=== PATIENT | female | born 1990 | race Caucasian/White ===

== ENCOUNTER → 2019-04-17 | Outpatient (CLI) | payer OTHER ==
[~2019-04-17] VITALS: Ht 163.8 cm; Wt 100.5 kg
[~2019-04-17] MED LIST: MULTIVITAMIN FO1 CAP PO; TRI-SPRINTEC 281 TAB PO; ZOVIRAX400 MG
[2019-04-17 14:00] VITALS: BP 108/80; PULSE 60
== END ==
LOC: LIGHT 13:36
DX: Z68.37 Body mass index [BMI] 37.0-37.9, adult (principal); Z98.84 Bariatric surgery status; K21.9 Gastro-esophageal reflux disease without esophagitis
CPT/HCPCS: G0463